=== PATIENT | female | born 1990 | race African-American/Black ===

== ENCOUNTER 2016-08-22 00:40 | Emergency (ER) | payer OTHER ==
[2016-08-22 00:49] VITALS: BP 112/73; BMI 29.9
[2016-08-22] MEDS ORDERED: TORADOL 60 MG VIAL ONE (01:36)
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
[2016-08-22] MEDS ORDERED: TORADOL 60 MG VIAL IM ONE (01:46)
[2016-08-22] MEDS ORDERED: NORFLEX INJ IM ONE (01:47)
[2016-08-22] MEDS ORDERED: NORFLEX INJ ONE (01:51)
== END 2016-08-22 02:20 | disposition home or self-care (01) ==
LOC: ER 00:40
DX: T24.302A Burn of third degree of unspecified site of left lower limb, except ankle and foot, initial encounter (principal)
CPT/HCPCS: 96372; 99282; J1885; J2360